=== PATIENT | female | born 1980 | race Caucasian/White ===

== ENCOUNTER 2019-07-11 11:10 | Outpatient (CLI) | payer SELFPAY ==
[~2019-07-11] VITALS: Ht 167.6 cm; Wt 61.4 kg
--- NOTE | ~2019-07-11 | OP ---
PATIENT NAME: DEMARCUS WILDER MEDICAL RECORD: [id number] :78 LOCATION:[facility] ADMISSION DATE: SURGEON: ELIZABETH HOFFMAN MD DATE OF OPERATION: 07/11/2019 PREOPERATIVE DIAGNOSES: 1. Abdominal pain. 2. Likely ruptured ectopic. POSTOPERATIVE DIAGNOSIS: Right ampullary ectopic ruptured. PROCEDURES: 1. Diagnostic laparoscopy. 2. Right salpingectomy. SURGEON: Dr. Elizabeth Hoffman. EDGE [employer]KER HEELS: Francisco Davis. ANESTHESIA: General. FINDINGS: Approximately 1 liter hemoperitoneum encountered. After clearing clot and fluid unremarkable-appearing left tube, left ovary and right ovary and uterus. What was visualized of the abdominal anatomy is unremarkable. Large and ectopic measuring 3 cm approximately in the right adnexa was encountered with rupture of the distal portion of the tube. SPECIMEN REMOVED: Portions of right tube and ectopic . SPECIMEN DISPOSITION: Pathology. ESTIMATED BLOOD LOSS: Less than one 100 cc of blood loss during the procedure. FLUIDS: 1. 700 cc lactated Ringer's. 2. Two units of packed red blood cells. URINE OUTPUT: 250 cc of clear urine. COMPLICATIONS: None. DRAINS: Russo to gravity discontinued at the close of this procedure. COMPLICATIONS: None. INDICATIONS: The patient is a 38-year-old G2, para 0-0-1-0, at approximately 10 weeks gestation, who presented to the Emergency Room today with abdominal pain. On workup, the patient was found to be . Ultrasound showing a in the right adnexa with cardiac activity. The patient had a large amount of free fluid in the belly. The patient was hemodynamically unstable with hypotension and tachycardia upon arrival. The patient was given resuscitative measures and consented for emergent laparoscopy and possible exploratory laparotomy and any indicated procedure. DESCRIPTION OF PROCEDURE: After informed consent was assured, the patient was OPERATIVE REPORT [id number] DEMARCUS WILDER taken from the Emergency Room to the operating room where anesthetic was obtained. An incision was made at the umbilicus to accommodate a 5-mm trocar. Large amount of hemoperitoneum is identified. With the patient in Trendelenburg position accessory ports were placed in the right and left lower quadrants. The right lower quadrant port is a 10-mm port. Through this, a 10-mm suction device is placed and clot and debris were cleared from the operative field. The pelvis was irrigated and irrigant removed. Again, more clot is removed with visualization of the uterus and tube. From the left side, a grasper was inserted and the tube and ectopic was elevated. Using a Thunderbeat coagulation cutter from the right side, the tube and the ectopic were removed from its attachments to the adnexa. The dissection begins laterally and concludes at the cornual region. The tube and portions of ectopic were placed in the cul-de-sac. An Endopouch was now inserted and all portions placed into the pouch and removed through the port. The pelvis again was irrigated and irrigant removed. The patient is now placed in reverse Trendelenburg position and back again in Trendelenburg position, removing as much of the blood and fluid from pelvis and abdomen. Pneumoperitoneum was released as the accessory ports were removed. The primary port was removed after release of the complete pneumoperitoneum. All sites were closed with subcuticular stitch and Dermabond applied. Sponge, lap, needle counts were correct times 2. The patient was awakened and went to the recovery room in stable condition. TRANSINT:[id number] Voice Confirmation ID: [id number] DOCUMENT ID: [id number] ELIZABETH HOFFMAN MD CC: [id number] DICTATION DATE: 07/11/19 1522 ECHOCARDIOLOGIST: 07/12/19 0219 DEP CLI 07/11/19 [facility] [address] [place] [address]
[2019-07-11 11:14] VITALS: Ht 167.6 cm; Wt 61.4 kg
[2019-07-11 12:17] LABS: APPEARANCE CLEAR (CLEAR); BILIRUBIN NEGATIVE (NEGATIVE); COLOR YELLOW (YELLOW); GLUCOSE NEGATIVE (NEGATIVE); KETONE NEGATIVE (NEGATIVE); NITRITE NEGATIVE (NEGATIVE); PROTEIN NEGATIVE (NEGATIVE); UROBILINOGEN NORMAL (NORMAL)
[2019-07-11 12:27] LABS: BASOPHILS 0.1 % (0-2); EOSINOPHILS 0 % (0-7); IMMATURE GRANULOCYTES 0.8 % (0-5); LYMPHOCYTES 9.7 % (15-50); MCH 30.7 pg (26.0-34.0); MCHC 34.7 g/dL (31.0-37.0); MCV 88.5 fL (80.0-100.0); MEAN PLATELET VOLUME 9.5 fL (7.4-10.4); MONOCYTES 5.6 % (2-11); NEUTROPHILS 83.8 % (40-80); PLATELET COUNT 327 10x3/uL (130-400); RBC 2.18 10x6/uL (4.00-5.40); RDW 13.1 % (11.5-14.5); WBC 19.8 10x3/uL (4.8-10.8)
[2019-07-11 12:28] LABS: HEMATOCRIT 19.3 % (36.0-48.0); HEMOGLOBIN 6.7 g/dL (12-16)
[2019-07-11 12:31] LABS: ANION GAP 12.1 mmol/L (8-16); CALCIUM 9.3 mg/dL (8.5-10.1); CARBON DIOXIDE 26.3 mmol/L (21.0-32.0); CREATININE - SERUM 1.1 mg/dL (0.6-1.3); POTASSIUM - SERUM 3.4 mmol/L (3.5-5.1)
[2019-07-11 12:49] LABS: ALBUMIN 3.2 g/dL (3.4-5.0); BILIRUBIN - TOTAL 0.22 mg/dL (0.2-1.3); MAGNESIUM - SERUM 1.9 mg/dL (1.8-2.4); PROTEIN - SERUM 6.6 g/dL (6.4-8.2)
[2019-07-11 12:49] LABS: UDS - AMPHET NEGATIVE QUAL (NEGATIVE); UDS - BARB NEGATIVE QUAL (NEGATIVE); UDS - BENZO NEGATIVE QUAL (NEGATIVE); UDS - COCAINE NEGATIVE QUAL (NEGATIVE); UDS - OPIATE NEGATIVE QUAL (NEGATIVE); UDS - PCP NEGATIVE QUAL (NEGATIVE); UDS - THC NEGATIVE QUAL (NEGATIVE)
--- NOTE | 2019-07-11 16:15 | NUR ---
RECEIVED BY BED FROM RECOVERY, PT IS AWAKE AND ALERT X 3. RATES PAIN AT 3/10, ABD SOFT TO TOUCH. SALINE LOCK TO RIGHT WRIST, LR INFUSING TO IV SITE IN LEFT FOREARM. SCD BILAT AND ATTACTED TO PUMP. ICE CHIPS PER REQUEST, PT DENIES NAUSEA AT THIS TIME.
[2019-07-11 16:30] VITALS: BP 120/71
[2019-07-11 16:45] VITALS: BP 117/73
--- NOTE | 2019-07-11 16:50 | NUR ---
CONTINUE TO DENY NAUSEA, REGULAR DIET TRAY SERVED. PT UNDERSTANDS TO CALL FOR NURSE WHEN SHE IS READY TO GET UP TO BATHROOM. SPOUSE AT BEDSIDE. SIDE RAILS UP X 2 WITH CALL LIGHT IN REACH.
--- NOTE | 2019-07-11 17:40 | NUR ---
PT UP TO VOID WITH NO ASSISTANCE NEEDED. DENIES DIZZINESS OR NAUSEA. ABLE TO VOID 400ML WITHOUT COMPLAINT. MESH BRIEF AND JAMAL PAD PROVIDED AND PT DRESSING IN HER OWN CLOTHING.
--- NOTE | 2019-07-11 18:00 | NUR ---
PT RATES PAIN AT 4/10 AND IS AGREEABLE TO PAIN MED. SALINE LOCK REMOVED INTACT FROM RIGHT WRIST WITH CATH INTACT. ALSO REMOVED IV FROM LEFT FOREARM DUE TO PT DENIAL OF NAUSEA.
--- NOTE | 2019-07-11 18:29 | NUR ---
PERCOCET 5/325MG GIVEN PO SCANNED TO EMAR. VERBAL AND WRITTEN D/C INSTRUCTIONS GONE OVER WITHOUT ANY QUESTIONS OR CONCERNS. WRITTEN SCRIPT FOR MOTRIN 800MG AND PERCOCET 7.5/325MG. SHE STATES UNDERSTANDING TO MAKE 2 WEEK FOLLOW UP APPOINTMENT AT [facility]. SHE IS DRESSING NOW AND WILL CALL WHEN READY FOR WHEELCHAIR.
--- NOTE | 2019-07-11 18:37 | NUR ---
PT TAKEN OUT BY WHEELCHAIR, HOME WITH SPOUSE BY PRIVATE CAR.
== END 2019-07-11 18:38 | disposition home or self-care (01) ==
LOC: D.LD 11:10 → D.ER 11:10 → D.LD 16:35 → D.ER 16:35 → EDSTATUS 16:37 → D.LD 18:38
PROVIDERS: ATTEND Emergency Medicine
DX: O00.101 Right tubal pregnancy without intrauterine pregnancy (principal); Z3A.10 10 weeks gestation of pregnancy; D64.9 Anemia, unspecified